=== PATIENT | female | born 1980 | race African-American/Black ===

== ENCOUNTER 2017-06-24 18:30 | Emergency (ER) | payer MEDICAID, OTHER ==
[~2017-06-24] VITALS: Ht 167.6 cm; Wt 91.2 kg
[~2017-06-24 18:30] MED LIST: IBUPROFEN600 MG ORAL; METHOCARBAMOL500 MG ORAL; NKM
[2017-06-24] MEDS ORDERED: DiphenhydrAMINE 50mg/ml Inj IVP ONE (19:00)
[2017-06-24] MEDS ORDERED: Metoclopramide 10mg/2ml Inj IVP ONE (19:00)
[2017-06-24] MEDS ORDERED: IBUPROFEN600 MG ORAL (19:04)
[2017-06-24] MEDS ORDERED: ROBAXIN-750750 MG PO (19:04)
--- NOTE | 2017-06-24 19:14 | Emergency Room Report ---
History of Present Illness General Chief Complaint: Headache Source: Patient Present Illness HPI 37-year-old female presenting with spasmodic headache for 3 days. Patient describes CAMACHO as sudden, sharp in nature, L neck and L head, non- radiating, intermittent, lasts only a few seconds. Denies photophobia, phonophobia. Denies fever, chills,blurry vision, motor/sensory weakness. States that with her job she has to do a lot of lifting Allergies: Coded Allergies: No Known Allergies (Unverified , 10/15/13) Patient History Past Medical History: see triage record Past Surgical History: none Pertinent Family History: none Last Menstrual Period: 05/31/17 Now: No - possible : 2 Para: 2 Reviewed Nursing Documentation: PMH: Agreed; PSxH: Agreed Nursing Documentation-PM Past Medical History: No History, Except For Hx Cardiac Problems: No - headaches Review of Systems All Other Systems: negative except mentioned in HPI Physical Exam Vital Signs Date Time Temp Pulse Resp B/P (MAP) Pulse Ox O2 Delivery O2 Flow Rate FiO2 06/24/17 18:43 97.9 77 14 132/93 94 Room Air 97.9 Sp02 EP Interpretation: reviewed, normal General Appearance: normal inspection, well appearing, no apparent distress, alert, GCS 15, non-toxic Head: normocephalic, atraumatic Eyes: bilateral eye normal inspection, bilateral eye PERRL, bilateral eye EOMI ENT: normal ENT inspection, normal pharynx, normal voice, moist mucus membranes Neck: normal inspection, full range of motion, supple, no meningismus, no bony tend Respiratory: normal inspection, lungs clear, normal breath sounds, no respiratory distress, no retraction, no wheezing, speaking full sentences, chest symmetrical Cardiovascular #1: normal inspection, regular rate, rhythm, no edema, normal capillary refill Cardiovascular #2: 2+ radial (R), 2+ radial (L) Gastrointestinal: normal inspection, non tender, soft, non-distended, no guarding Musculoskeletal: normal inspection, back normal, normal range of motion, non- tender Neurologic: normal inspection, alert, oriented x3, responsive, motor strength/ tone normal, sensory intact, normal gait, speech normal Psychiatric: normal inspection, judgement/insight normal, memory normal Skin: normal inspection, normal color, no rash, warm/dry, well hydrated, normal turgor Medical Decision Making Diagnostic Impression: Primary Impression: Headache ER Course 37-year-old female presenting with spasmodic headache and neck pain for 3 days DDX: Primary CAMACHO such as migraine, tension CAMACHO, cluster. vs. dehydration Versus muscular pain Other serious diagnoses on differential such as intracranial bleed/sah, meningitis/encephalitis, tumor, however patients H&P is more consistent with benign etiology at this time. There are no neurological signs/symptoms/findings on physical exam and patient appears nontoxic. Plan: Motrin Robaxin ER course: Patient feels much better with meds. Patient continues to appear nontoxic, aox3, no neurologic symptoms. Disposition: Patient will be discharged to home. Patient instructed to follow up with primary care doctor within 5 days. Patient also instructed to follow up with a neurologist within 1 week. Strict return precautions discussed with patient such as severe/worsening headache, nausea, vomiting, fever chills, neck pain. Patient verbalized understanding. Please note that this Emergency Department Report was dictated using [employer] facilitator technology software, occasionally this can lead to erroneous entry secondary to interpretation by the dictation equipment. Last Vital Signs Date Time Temp Pulse Resp B/P (MAP) Pulse Ox O2 Delivery O2 Flow Rate FiO2 06/24/17 18:43 97.9 77 14 132/93 94 Room Air 97.9 Disposition: HOME, SELF-CARE Condition: Improved Scripts Ibuprofen* (MOTRIN*) 600 Mg Tablet 600 MG ORAL Q8H PRN for For Pain, #30 TAB 0 Refills Prov: Makeda Bernal M.D. 06/24/17 Methocarbamol* (ROBAXIN-750*) 750 Mg Tablet 750 MG PO QID, #28 TAB 0 Refills Prov: Makeda Bernal M.D. 06/24/17 Patient Instructions: General Headache Without Cause Additional Instructions: PLEASE FOLLOW UP WITH A NEUROLOGIST IF YOU CONTINUE TO HAVE SYMPTOMS IN 2 WEEKS Makeda Bernal M.D. Jun 24, 2017 19:14
[2017-06-24] MEDS ORDERED: Methocarbamol 750mg tab ORAL ONE (19:15)
[2017-06-24 19:30] VITALS: BP 128/80
[2017-06-24 19:42] LABS: APPEARANCE,URINE SLIGHTLY CLOUDY; BILIRUBIN, URINE NEGATIVE (NEGATIVE); COLOR,URINE PALE YELLOW; GLUCOSE, URINE (UA) NEGATIVE (NEGATIVE); KETONES,URINE NEGATIVE (NEGATIVE); LEUKOCYTE ESTERASE ,URINE 1+ (NEGATIVE); NITRITE,URINE NEGATIVE (NEGATIVE); PH,URINE 6 (4.5-8.0); PROTEIN,URINE 1+ (NEGATIVE); UROBILINOGEN,URINE NORMAL MG/DL (0.0-1.0)
[2017-06-24 20:02] VITALS: BP 128/80
== END 2017-06-24 20:02 | disposition home or self-care (01) ==
LOC: EMR 19:30
DX: R51 Headache (principal); M54.2 Cervicalgia
CPT/HCPCS: 81003; 81025; 99284

== ENCOUNTER 2019-01-14 13:03 | Observation (INO) | payer MEDICAID, OTHER ==
[~2019-01-14] VITALS: Ht 167.6 cm; Wt 98.9 kg
[~2019-01-14 13:03] MED LIST changes: +ROBAXIN-750750 MG PO
--- NOTE | 2019-01-14 13:21 | NUR ---
ED Nurse Note: Pt 6 weeks came in from home due to abdominal cramping since last night, stated after she finished her 7 hour shift of work. NO complaint of CP/SOB, nausea/vomiting or bleeding. Pt only has pain with movement or with respirations. AOOx4, vital signs stable. Pt was ambulatory. Will cont to monitor.
[2019-01-14 14:08] LABS: BASOPHILS % (AUTO) 0.7 % (0.0-2.0); HEMATOCRIT 38.4 % (37.0-47.0); HEMOGLOBIN 12.9 G/DL (12.0-16.0); LYMPHOCYTES % (AUTO) 12.6 % (20.0-45.0); MEAN CORPUSCULAR VOLUME 89 FL (80-99); NEUTROPHILS % (AUTO) 80.7 % (45.0-75.0); PLATELET COUNT 354 K/UL (150-450); RED BLOOD COUNT 4.31 M/UL (4.20-5.40); RED CELL DISTRIBUTION WIDTH 12.1 % (11.6-14.8); WHITE BLOOD COUNT 13.5 K/UL (4.8-10.8)
[2019-01-14 14:11] LABS: APPEARANCE,URINE CLEAR; BILIRUBIN, URINE NEGATIVE (NEGATIVE); COLOR,URINE PALE YELLOW; GLUCOSE, URINE (UA) NEGATIVE (NEGATIVE); KETONES,URINE NEGATIVE (NEGATIVE); LEUKOCYTE ESTERASE ,URINE NEGATIVE (NEGATIVE); NITRITE,URINE NEGATIVE (NEGATIVE); PH,URINE 7 (4.5-8.0); PROTEIN,URINE NEGATIVE (NEGATIVE); UROBILINOGEN,URINE NORMAL MG/DL (0.0-1.0)
[2019-01-14 14:20] LABS: ANION GAP 8 mmol/L (5-15); BLOOD UREA NITROGEN 11 mg/dL (7-18); CALCIUM 9.2 MG/DL (8.5-10.1); CARBON DIOXIDE 29 MMOL/L (21-32); CHLORIDE 101 MMOL/L (98-107); CREATININE 0.7 MG/DL (0.55-1.30); POTASSIUM 3.4 MMOL/L (3.5-5.1); SODIUM 138 MMOL/L (136-145)
[2019-01-14 14:26] LABS: ALANINE AMINOTRANSFERASE 37 U/L (12-78); ALBUMIN 3.5 G/DL (3.4-5.0); ALBUMIN/GLOBULIN RATIO 0.8 (1.0-2.7); ALKALINE PHOSPHATASE 59 U/L (46-116); ASPARTATE AMINO TRANSFERASE 18 U/L (15-37); BILIRUBIN,TOTAL 0.5 MG/DL (0.2-1.0)
[2019-01-14 14:54] VITALS: BP 117/83
--- NOTE | 2019-01-14 15:36 | NUR ---
ER Nurse Note: Pt stable, no signs of distress. Pt ambulated with steady gait; no difficulty voiding. Pt infusing NS in RT AC; patent. Pt denies pain, n/v, cramping currently. Pt went to US. Will continue to montior.
--- NOTE | 2019-01-14 16:57 | Emergency Room Report ---
History of Present Illness General Chief Complaint: Abdominal Pain Source: Patient (Farhad Barcenas) Present Illness HPI 38-year-old female with no symptom past medical history who is G4, here complaining of lower abdominal cramping x1 day. Patient reports that she is about 6 weeks . Has taken home tests both positive. Has not yet seen MECHANICAL MANUFACTURING TECHNICIAN. Patient has history of hypertension and takes chlorothiazide for blood pressure and been told it is okay to continue taking it until seen by MECHANICAL MANUFACTURING TECHNICIAN next week. Denies chest pain, syncope, shortness of breath, palpitation , nausea vomiting, headache and dizziness. Denies vaginal bleeding and spotting. Denies vaginal discharge. Denies urinary frequency and dysuria. Denies hematuria. Has not taken medication for symptom relief. Also reports that she has been having a cough for 3 days and has not taken medication for symptom relief. Denies other URI symptoms. Rating the pain 7 out of 10 without radiation. Reports that the pain started after standing on her feet for too long at work yesterday (Farhad Barcenas) Allergies: Coded Allergies: No Known Allergies (Unverified , 10/15/13) Patient History Past Medical History: see triage record Past Surgical History: unable to obtain Pertinent Family History: none Now: Yes : 3 Para: 2 Immunizations: UTD Reviewed Nursing Documentation: PMH: Agreed; PSxH: Agreed (Farhad Barcenas) Nursing Documentation-PMH Past Medical History: No History, Except For Hx Cardiac Problems: No - headaches (Farhad Barcenas) Review of Systems All Other Systems: negative except mentioned in HPI (Farhad Barcenas) Physical Exam Vital Signs Date Time Temp Pulse Resp B/P (MAP) Pulse Ox O2 Delivery O2 Flow Rate FiO2 01/14/19 13:11 99.0 89 20 113/81 (92) 96 Room Air Sp02 EP Interpretation: reviewed, normal General Appearance: no apparent distress, alert, GCS 15, non-toxic Head: normocephalic, atraumatic Eyes: bilateral eye normal inspection, bilateral eye PERRL ENT: hearing grossly normal, normal pharynx, no angioedema, normal voice Neck: full range of motion, supple, no meningismus, no bony tend, supple/symm/ no masses Respiratory: chest non-tender, lungs clear, normal breath sounds, no wheezing, speaking full sentences Cardiovascular #1: regular rate, rhythm, no edema, no gallop, no murmur Gastrointestinal: normal bowel sounds, non tender, soft, no mass, no organomegaly, no peritonitis, no bruit, non-distended, no guarding, no rebound Genitourinary: normal inspection, no CVA tenderness Musculoskeletal: back normal, gait/station normal, normal range of motion, non- tender, no calf tenderness Neurologic: alert, oriented x3, responsive, motor strength/tone normal, sensory intact, speech normal Psychiatric: judgement/insight normal, memory normal, mood/affect normal, no suicidal/homicidal ideation Skin: no rash Lymphatic: normal inspection, no adenopathy (Farhad Barcenas) Medical Decision Making PA Attestation All diagnoses and treatment plans were reviewed and discussed with my supervising physician Dr. Arshad (Farhad Barcenas) Diagnostic Impression: Primary Impression: Abdominal pain affecting Additional Impression: Ruptured ectopic ER Course 38-year-old female with no symptom past medical history who is G4, here complaining of lower abdominal cramping x1 day. Patient reports that she is about 6 weeks . Has taken home tests both positive. Has not yet seen MECHANICAL MANUFACTURING TECHNICIAN. Patient has history of hypertension and takes chlorothiazide for blood pressure and been told it is okay to continue taking it until seen by MECHANICAL MANUFACTURING TECHNICIAN next week. Denies chest pain, syncope, shortness of breath, palpitation , nausea vomiting, headache and dizziness. Denies vaginal bleeding and spotting. Denies vaginal discharge. Denies urinary frequency and dysuria. Denies hematuria. Has not taken medication for symptom relief. Also reports that she has been having a cough for 3 days and has not taken medication for symptom relief. Denies other URI symptoms. Rating the pain 7 out of 10 without radiation. Reports that the pain started after standing on her feet for too long at work yesterday Ddx considered but are not limited to: Threatened , complete , complications during , vaginal bleeding during , ectopic Vital signs: are WNL, pt. is afebrile H&PE are most consistent with: Abdominal pain during , ruptured ectopic ORDERS: CBC, CP, UA, type and screen, beta hCG, OB ultrasound ED INTERVENTIONS: NS bolus, Tylenol Patient was admitted with diagnosis of ruptured ectopic , to Dr. graves under supervision of Dr.: Jeancarlos pt stable at time of admission (Farhad Barcenas) ER Course Please see above note. LNMP ended 12/09. Pain started on R and now is more generalized in suprapubic area. Patient examined by me. U/S with hemorrhage/fluid pelvis, fibroid, no IUP. Endometrium 2.3 cm. Query occult ectopic. Discussed with Dr. Paul who agrees with observation. (Lanre Arshad MD) CT/MRI/US Diagnostic Results CT/MRI/US Diagnostic Results : Imaging Test Ordered: OB US Impression US OB 1st TRIMESTER: No IUP. Endometrium 2.3 cm and debris in the individual cavity Complex fluid/hemorrhage in the pelvis. No complex adnexal mass lesions demonstrated. Uterine fibroids. Differential must include a ruptured occult ectopic. (Farhad Barcenas) Last Vital Signs Date Time Temp Pulse Resp B/P (MAP) Pulse Ox O2 Delivery O2 Flow Rate FiO2 01/14/19 14:54 99.0 81 17 117/83 96 Room Air (Farhad Barcenas) Last Vital Signs Date Time Temp Pulse Resp B/P (MAP) Pulse Ox O2 Delivery O2 Flow Rate FiO2 01/14/19 20:49 Room Air 01/14/19 20:25 98.2 90 16 122/79 95 Status: improved (Lanre Arshad MD) Disposition: PLACE IN OBSERVATION Condition: Serious Referrals: NON PHYSICIAN (PCP) Patient Instructions: Abdominal Pain During , Upper Respiratory Infection, Adult Additional Instructions: Follow-up with your MECHANICAL MANUFACTURING TECHNICIAN in 24 hours for repeat ultrasound and beta hCG levels. Tylenol is okay to be taken also [id number] Mucinex is okay to be taken for cough. Your beta hCG level should be repeated tomorrow to see if there are going up or remaining the same. At this time the level is 755. No intrauterine pole was visualized and to repeat ultrasound in 24 hours to rule out risk of miscarriage. If worsening symptoms, syncope, fever and chills return to the emergency room Farhad Barcenas Jan 14, 2019 16:57 Lanre Arshad MD Jan 14, 2019 17:36
--- NOTE | 2019-01-14 17:16 | Diagnostic Imaging Report ---
Indication: . Pelvic pain Technique: Grayscale and duplex Doppler imaging of the pelvis performed utilizing a transabdominal scan and endovaginal scan. Comparison: None Findings: No intrauterine demonstrated. The endometrium is moderately thickened measuring 23 mm with the debris within the endometrial canal. There is focus of calcification within the ventral fundus body and probably a fibroid. Within the area of the cul-de-sac there is a echogenic heterogeneous material likely blood. Given the positive test, differential diagnosis includes an occult ruptured ectopic . The ovaries are seen and the left ovary demonstrate dopplerable blood flow. There is a simple cyst within the right ovary measuring 2.7 cm. The right ovary could not be seen well on this examination. IMPRESSION: Evidence of hemoperitoneum with complex echogenic peritoneal fluid and organized hematoma noted in the cul-de-sac region. Occult ruptured ectopic is certainly possible. Correlate clinically. No IUP. [facility] has communicated the preliminary results to the Emergency Department. Their findings are largely concordant with this report. Critical value communication. Findings were discussed via telephone with the emergency room physician by Dr. Zunilda Padilla from [facility] at 5:17pm, 01/14/2019..
--- NOTE | 2019-01-14 17:29 | NUR ---
ER Nurse Note: Pt back from US; ERMD and ER PA informed pt about results. No questions from pt. Pt denies pain, no n/v, no signs of distress. Pt stable. Awaiting orders. Will continue to montior.
--- NOTE | 2019-01-14 18:07 | NUR ---
ER Nurse Note: Spoke with Sergey, lining caser, was told to keep pt in [place] obs. Belongings list completed. Pt aware of admission. Pt stated she has questions about dx; endorsed to ER PA. Pt on continous fluids; will continue to khadar.
[2019-01-14 19:14] VITALS: BP 122/79
--- NOTE | 2019-01-14 19:14 | NUR ---
ER Nurse Note: Pt up to date on admission process. Second IV established on LT wrist 22 gauge infusing NS at 300cc/hr. Pt VSS, no signs of distress, RA, stable. Pt ambualted to restroom with steady gait. Awaiting admission orders. All safety measures met; will continue to motnior.
--- NOTE | 2019-01-14 20:25 | NUR ---
ER Nurse Note: Report given to JUAN Rincon in [place] for contintuy of care. Pt stable, no signs of distress, RA. Pt denies pain, bleeding. Pt left with all belonings.
--- NOTE | 2019-01-14 20:40 | NUR ---
NURSE NOTES: Received pt from E.Jan via wheelchair, AOx4, ambulatory, gait steady, denies any pain, no distress noted. Will admit pt to floor. Bed in lowest position and locked, side rails up x 2, call light within reach. Will continue to monitor.
[2019-01-14] MEDS ORDERED: DIURIL25 MG ORAL (21:05)
--- NOTE | 2019-01-14 21:09 | NUR ---
NURSE NOTES: Called Dr. Paul for admission orders. Left message with answering service, awaiting for call back.
--- NOTE | 2019-01-14 21:17 | NUR ---
NURSE NOTES: Dr. Paul called back admission orders obtained, read back and verified. Will carry out orders.
[2019-01-14] MEDS ORDERED: HYDROcodone/Acetamin 5/325 tab ORAL PRN (21:30)
[2019-01-15 05:13] VITALS: BP 116/80
[2019-01-15 05:52] LABS: BASOPHILS % (AUTO) 0.9 % (0.0-2.0); EOSINOPHILS % (AUTO) 1.4 % (0.0-3.0); HEMOGLOBIN 10.7 G/DL (12.0-16.0); LYMPHOCYTES % (AUTO) 21.6 % (20.0-45.0); MEAN CORPUSCULAR VOLUME 88 FL (80-99); MONOCYTES % (AUTO) 6.2 % (1.0-10.0); PLATELET COUNT 307 K/UL (150-450); RED BLOOD COUNT 3.52 M/UL (4.20-5.40); WHITE BLOOD COUNT 9.2 K/UL (4.8-10.8)
--- NOTE | 2019-01-15 07:16 | NUR ---
HAND-OFF: Report given to Buster Hermosillo RN. Pt in stable condition.
--- NOTE | 2019-01-15 07:17 | NUR ---
NURSE NOTES: Received report from Sergey MARTINEZ. Pt in bed and no c/o pain and No acute distress noted. On room air. Alert and oriented x4.No s/sx of bleeding noted. IV site in RAC 20G running with NS@20ml/hr patent and asymptomatic. Bed in lowest position and locked. Call light within easy reach. Will continue to plan of care.
[2019-01-15 08:00] VITALS: BP 120/83
--- NOTE | 2019-01-15 09:46 | NUR ---
*-* NO INSURANCE INFORMATION IN THE BAR UNABLE TO SEND CLINICALS OR REVIEWS *-*
[2019-01-15 12:00] VITALS: BP 117/78
[2019-01-15 12:55] LABS: BASOPHILS % (AUTO) 1.4 % (0.0-2.0); EOSINOPHILS % (AUTO) 0.8 % (0.0-3.0); HEMATOCRIT 34.1 % (37.0-47.0); HEMOGLOBIN 11.7 G/DL (12.0-16.0); LYMPHOCYTES % (AUTO) 14.7 % (20.0-45.0); MEAN CORPUSCULAR VOLUME 88 FL (80-99); MONOCYTES % (AUTO) 6.2 % (1.0-10.0); PLATELET COUNT 330 K/UL (150-450); RED BLOOD COUNT 3.87 M/UL (4.20-5.40); RED CELL DISTRIBUTION WIDTH 12.8 % (11.6-14.8); WHITE BLOOD COUNT 11.9 K/UL (4.8-10.8)
--- NOTE | 2019-01-15 13:45 | History & Physical ---
History and Physical History & Physicial GYNECOLOGY H&P CC: Pelvic pain, r/o ectopic HPI: Patient is a 38yo admitted with pelvic pain and positive test, imaging concerning for ruptured ectopic . Her primary OB is Dr. Stevenson. Her LMP is 12/04/18, she is 6w and this was a highly desired . She reports that her pain started on Tuesday night as a dull crampy pain, and progressed to pain with ambulation. She is currently reporting that her pain is improved and she is having some spotting. She denies lightheadedness or dizziness. PMH: HTN PSH: C/S x 2 Meds: HCTZ 12.5mg daily Allergies: NKDA OBHx: - C/S x 2 (5 & 8y ago), TAB x 1 (20y ago) GYNHx: No hx abnl Pap, +fibroids, no cysts SocHx: Works as photographic artist FamHx: Denies any hx of VTE, TN, CVA, or CA Vitals: reviewed, WNL Exam: Gen: NAD HEENT: MMM, OP clear Neck: No obvious thyromegaly CV: No tachycardia Pulm: No increased work of breathing Abd: Soft, mild TTP in lower abdomen, no rebound or guarding Pelvic: No bleeding Ext: No calf TTP Labs: Labs Test 01/14/19 13:15 01/14/19 13:54 01/15/19 05:00 01/15/19 12:05 Urine Color Pale yellow Urine Appearance Clear Urine pH 7 (4.5-8.0) Urine Specific [place] 1.005 (1.005-1.035) Urine Protein Negative (NEGATIVE) Urine Glucose (UA) Negative (NEGATIVE) Urine Ketones Negative (NEGATIVE) Urine Blood 4+ (NEGATIVE) Urine Nitrite Negative (NEGATIVE) Urine Bilirubin Negative (NEGATIVE) Urine Urobilinogen Normal MG/DL (0.0-1.0) Urine Leukocyte Esterase Negative (NEGATIVE) Urine RBC 2-4 /HPF (0 - 2) Urine WBC 0-2 /HPF (0 - 2) Urine Squamous Epithelial Cells Few /LPF (NONE/OCC) Urine Bacteria Occasional /HPF (NONE) White Blood Count 13.5 K/UL (4.8-10.8) 9.2 K/UL (4.8-10.8) 11.9 K/UL (4.8-10.8) Red Blood Count 4.31 M/UL (4.20-5.40) 3.52 M/UL (4.20-5.40) 3.87 M/UL (4.20-5.40) Hemoglobin 12.9 G/DL (12.0-16.0) 10.7 G/DL (12.0-16.0) 11.7 G/DL (12.0-16.0) Hematocrit 38.4 % (37.0-47.0) 31.0 % (37.0-47.0) 34.1 % (37.0-47.0) Mean Corpuscular Volume 89 FL (80-99) 88 FL (80-99) 88 FL (80-99) Mean Corpuscular Hemoglobin 30.0 PG (27.0-31.0) 30.4 PG (27.0-31.0) 30.2 PG (27.0-31.0) Mean Corpuscular Hemoglobin Concent 33.7 G/DL (32.0-36.0) 34.5 G/DL (32.0-36.0) 34.3 G/DL (32.0-36.0) Red Cell Distribution Width 12.1 % (11.6-14.8) 12.0 % (11.6-14.8) 12.8 % (11.6-14.8) Platelet Count 354 K/UL (150-450) 307 K/UL (150-450) 330 K/UL (150-450) Mean Platelet Volume 5.6 FL (6.5-10.1) 5.9 FL (6.5-10.1) 5.8 FL (6.5-10.1) Neutrophils (%) (Auto) 80.7 % (45.0-75.0) 70.0 % (45.0-75.0) 77.0 % (45.0-75.0) Lymphocytes (%) (Auto) 12.6 % (20.0-45.0) 21.6 % (20.0-45.0) 14.7 % (20.0-45.0) Monocytes (%) (Auto) 5.0 % (1.0-10.0) 6.2 % (1.0-10.0) 6.2 % (1.0-10.0) Eosinophils (%) (Auto) 1.0 % (0.0-3.0) 1.4 % (0.0-3.0) 0.8 % (0.0-3.0) Basophils (%) (Auto) 0.7 % (0.0-2.0) 0.9 % (0.0-2.0) 1.4 % (0.0-2.0) Sodium Level 138 MMOL/L (136-145) Potassium Level 3.4 MMOL/L (3.5-5.1) Chloride Level 101 MMOL/L (98-107) Carbon Dioxide Level 29 MMOL/L (21-32) Anion Gap 8 mmol/L (5-15) Blood Urea Nitrogen 11 mg/dL (7-18) Creatinine 0.7 MG/DL (0.55-1.30) Estimat Glomerular Filtration Rate > 60 mL/min (>60) Glucose Level 98 MG/DL (74-106) Calcium Level 9.2 MG/DL (8.5-10.1) Total Bilirubin 0.5 MG/DL (0.2-1.0) Aspartate Amino Transf (AST/SGOT) 18 U/L (15-37) Alanine Aminotransferase (ALT/SGPT) 37 U/L (12-78) Alkaline Phosphatase 59 U/L (46-116) Total Protein 8.1 G/DL (6.4-8.2) Albumin 3.5 G/DL (3.4-5.0) Globulin 4.6 g/dL Albumin/Globulin Ratio 0.8 (1.0-2.7) Human Chorionic Gonadotropin, Quant 755 mIU/mL (1-6) 464 mIU/mL (1-6) Assessment/Plan: 38yo with abnormal (likely aborted fimbrial ) patient is hemodynamic stable with decreasing Beta-hCG levels and no evidence of acute abdomen on exam. H/H with no evidence of continued drop, thus persistent bleeding unlilkely. Patient tolerating regular diet. - No indication for surgical intervention given overall clinical picture is reassuring and condition improving - No indication for MTX given resolving Beta-hCG levels - Patient is cleared for discharge given her clinical condition has improved and she is able to follow up with her primary [employer] - Strict return precautions given for worsening pain, dizziness, lightheadedness , or any other concern - Recommend follow up with Dr. Stevenson this week Patient discussed with Dr. Paul, on-call physician, who agrees with plan of care Meghan Oreilly M.D. Jan 15, 2019 13:45
[2019-01-15 14:20] VITALS: BP 128/82
--- NOTE | 2019-01-15 14:40 | NUR ---
NURSE NOTES: Patient reported to RN for vaginal bleeding with moderated amount but she already flushed out. She states that it would be the amount that could soak with 2-3 4x4 gauze and she also reported low abdomen pain but she said it's like a pain when she has her period. Vital signs mimi in normal range. 128/82, P 88
--- NOTE | 2019-01-15 15:15 | NUR ---
Discharge: Patient is being discharged from medical care. Awake, alert and oriented x4. No c/o pain or any distress noted. After care instructions, including referral to community resources were given. Patient verbalized understanding of After care instructions; at this time patient does not request medications, equipment or placement. Patient signed patient consent in the medical record for patient destination upon discharge. The patient may picked up by her friend via a private car. All medical devices such as IV and ID band were removed. Patient assisted to leave via wheelchair with RN with all personal belongings. Reminded the patient to see a OBGYN as scheduled in 2days.
--- NOTE | 2019-01-15 15:54 | NUR ---
CASE MANAGEMENT:REVIEW 38 YR OLD FEMALE PRESENTED TO ER CC; 6 WEEKS AND C/O CRAMPING SI:ABDOMINAL PAIN AFFECTING 99.0 89 20 113/81 96% ON RA WBC+13.5 K-3.4 HCG+755 IS: 1L NS BOLUS X2 IV ZOFRAN Q6HRS PRN NORCO PO Q4HRS PRN MOTRIN PO X1 US OB : TO MED/SURG 3 [facility]
--- NOTE | 2019-01-15 16:34 | NUR ---
*-* INSURANCE *-* ALL CLINICALS AND REVIEWS HAVE BEEN FAXED TO: [facility] Ref#[id number] CM: Alexei ext [phone]
--- NOTE | 2019-01-16 13:08 | Discharge Summary ---
Discharge Summary Discharge Summary _ DATE OF ADMISSION: 01/14/2019 DATE OF DISCHARGE: 01/15/2019 DISCHARGED BY: Dr. Oreilly REASON FOR ADMISSION: 38 years old female 4 para 2 admitted for pelvic pain and positive test . Patient has a history of x2. Last menstrual period was 12/04/2018. Patient was 6 weeks and this was a highly desirable . Patient reported that pain started on Tuesday night as a dull , crampy, and progressed to pain with ambulation. Upon evaluation she reported that her pain improved and she had some spotting. She denied lightheadedness or dizziness. Obstetrical ultrasound first trimester revealed evidence of hemoperitoneum with complex echogenic peritoneal fluid and organized hematoma region. Occult ruptured ectopic was possible. No intrauterine . Laboratory work-up revealed mild leukocytosis WBC 13.5 , stable hemoglobin and hematocrit. Beta hCG 755. Stable renal parameters and electrolytes. Urinalysis revealed no evidence of UTI. Patient admitted to medical surgical floor for further management. HOSPITAL COURSE: Patient admitted to medical surgical floor. Beta-hCG decreased to 464 . No evidence of acute abdomen on exam. Hemoglobin and hematocrit remained stable, making persistent bleeding unlikely. Patient was able to tolerate regular diet. There was no indication for surgical intervention , given overall stable clinical condition. No indication for MTX given resolving beta-hCG. Patient remained hemodynamically stable. Afebrile. Patient was cleared for discharge , given her clinical condition . Patient to follow-up with her primary TOOL DISPATCHER. Strict return precautions provided for worsening pain, dizziness, lightheadedness or any other concerns. FINAL DIAGNOSES: Abnormal first trimester Likely aborted fimbrial DISCHARGE MEDICATIONS: None DISCHARGE INSTRUCTIONS: Follow-up with the primary TOOL DISPATCHER Dr. Stevenson this week. Return to ED if worsening pain, dizziness, lightheadedness or any other concerns. I have been assigned to dictate discharge summary for this account. I was not involved in the patient's management. Gail Ureña NP Jan 16, 2019 13:08
--- NOTE | 2019-01-16 16:14 | NUR ---
*-* INSURANCE *-* discharge summary has BEEN FAXED TO: [facility] Ref#[id number] CM: Alexei ext [phone]
== END 2019-01-15 15:15 | disposition home or self-care (01) ==
LOC: EMR 14:11 → EDBEDREQ 18:10 → OBSVTOIN 20:33 → INTOOBSV 20:33 → 3E 20:33
DX: O03.9 Complete or unspecified spontaneous abortion without complication (principal); O26.891 Other specified pregnancy related conditions, first trimester; Z3A.01 Less than 8 weeks gestation of pregnancy
CPT/HCPCS: 36415; 76801; 76830; 80053; 81001; 84144; 84702; 85025; 96360; 96361; Z7502; 99285; G0378; J7030